=== PATIENT | male | born 1970 | race Caucasian/White ===

== ENCOUNTER 2016-11-03 21:30 | Emergency (ER) | payer OTHER ==
--- NOTE | ~2016-11-03 | ER ---
PATIENT'S NAME: [facility] AGE: 45 Y [address] ROOM: [place] [address] LOCATION: [facility] ADMIT DATE: 11/03/2016 ER/Outpatient Report DISCHARGE DATE: 11/03/2016 FAMILY PHYSICIAN: Ji Castle MD ATTENDING PHYSICIAN: Awilda Zaragoza Time of Arrival: 2130 hours. Time of Evaluation: 2200 hours. IDENTIFICATION: A 45-year-old male. CHIEF COMPLAINT: Back and rib pain. HISTORY OF PRESENT ILLNESS: The patient is a 45-year-old male, who at approximately 5:00 p.m. was backup his horse and landed on his back on the left side. He states that knocked the wind out of him. He did not hit his head. No loss of consciousness. He is complaining severe pain on the left posterior ribs. No shortness of breath. No nausea or vomiting. No lightheadedness or dizziness. No neck pain. PAST MEDICAL HISTORY: ALLERGIES: NO KNOWN DRUG ALLERGIES. CURRENT MEDICATIONS: Advil. MEDICAL PROBLEMS: Denies. No prior surgeries or hospitalizations. SOCIAL HISTORY: The patient lives in [place]. He is . Tobacco use, denies. Alcohol use, occasional. Drug use, denies. FAMILY HISTORY: No pertinent family history identified. REVIEW OF SYSTEMS: All systems reviewed and negative other than what is noted in the HPI. PHYSICAL EXAMINATION: VITAL SIGNS: Weight 88.3 kg. Blood pressure 139/87, pulse 98, respirations PATIENT'S NAME: [facility] AGE: 45 Y [address] ROOM: [place] [address] LOCATION: [facility] ADMIT DATE: 11/03/2016 ER/Outpatient Report DISCHARGE DATE: 11/03/2016 FAMILY PHYSICIAN: Ji Castle MD ATTENDING PHYSICIAN: Awilda Zaragoza 16, and saturations 99%. GENERAL: A 45-year-old male, in obvious distress, who refuses to sit on the cot or lie down. He is standing as that is his position of comfort. HEENT: Head: Normocephalic, atraumatic. Ears: TMs translucent, both ears. Eyes: Pupils equal and reactive to light and accommodation. Extraocular movements intact. Nose: Mucosa pink. No lesions. Mouth: No lesions. Pharynx benign. NECK: Supple. No lymphadenopathy. No tenderness to palpation of the cervical spine. No midline tenderness to palpation of the thoracic or lumbar spine. He is tender to palpation over the left lumbar paraspinal muscles and over the left posterior ribs. No crepitus. No palpable deformities. HEART: Regular rate and rhythm. ABDOMEN: Soft, nondistended. Tender to palpation in the left upper abdomen when I get close to the ribcage. No rebound or guarding. EXTREMITIES: Full range of motion. No deformities. No tenderness to pelvic rock. NEURO: The patient is alert and oriented x4. Cranial nerves 2 through 12 grossly intact. Motor strength 5/5 throughout. Sensation is intact to light touch. EMERGENCY DEPARTMENT COURSE: Initially, the patient did not want any pain medication. We did start an IV. He had a vasovagal reaction with lightheadedness and dizziness at that time. His blood pressure however remained stable. Sodium 137, potassium 3.7, chloride 107, CO2 of 21, BUN 20, creatinine 1.1, blood sugar 100. Liver enzymes normal. Alcohol level less than 0.010. Hemoglobin 17.3, hematocrit 47.2, platelets 261, white count 13.5 with a normal differential. INR 0.92. The patient was given 50 mcg of fentanyl and [address] chest, abdomen, and pelvis with IV contrast: Acute nondisplaced left transverse process fractures at T8 and T9 and subtle nondisplaced buckle fractures of the left posterior ribs at this level. No other fracture or acute abnormality identified. CT of his thoracic spine: As noted above. No other fractures identified. CT of his head negative. CT of the cervical spine negative. CT of his lumbar spine negative. IMPRESSION AND PLAN: T8 and T9 transverse process fractures on the left with associated buckling of the posterior ribs at those levels. Rib fracture handout. The patient was given Percocet 5/325 mg orally here prior to discharge. He did not want to stay for pain control. Percocet 5/325 mg 1 to 2 p.o. q.4-6 hours p.r.n. pain, dispensed 20 with 0 refills. Zofran 4 mg 1 p.o. q.6 hours p.r.n. nausea, dispensed 4 with 0 refills. Ice as needed. Deep breath. Follow up with Dr. Castle next week. Follow up sooner if any problems or concerns. The patient understands and agrees, and all questions have been answered. PATIENT'S NAME: JACOB HERNADEZ [facility] AGE: 45 Y [address] ROOM: [place] [address] LOCATION: [facility] ADMIT DATE: 11/03/2016 ER/Outpatient Report DISCHARGE DATE: 11/03/2016 FAMILY PHYSICIAN: Ji Castle MD ATTENDING PHYSICIAN: Awilda Zaragoza AWILDA ZARAGOZA MD CAR/modl /[id number] d: 11/04/16 0746 t: 11/05/16 0142, OUTPATIENT REPORT
[2016-11-03 22:24] LABS: BASOPHIL % 0.2 %; EOSINOPHIL % 0.3 %; HEMATOCRIT 47.2 % (37.0-53.0); HEMOGLOBIN 17.3 g/dL (12.0-17.0); IMMATURE GRANULOCYTE # 0.1 K/uL (0.0-0.3); IMMATURE GRANULOCYTE % 0.6 %; LYMPHOCYTE # 2.3 K/uL (0.8-4.0); MCH 32.9 pg (27.0-34.0); MCHC 36.7 gm/dL (32.0-36.5); MCV 89.7 fl (83.0-98.0); MONOCYTE # 0.8 K/uL (0.0-1.0); MONOCYTE % 5.8 %; MPV 9.1 fl (9.4-12.4); NEUTROPHIL # (ANC) 10.3 K/uL (1.4-9.0); NEUTROPHIL % 76.1 %; NRBC % 0 /100WBC (0-0.00); PLATELET COUNT 261 K/uL (150-450); RBC 5.26 M/uL (4.00-6.00); RDW-CV 11.9 % (11.9-14.6); WBC 13.5 K/uL (4.0-11.0)
[2016-11-03 22:32] LABS: INR - (THERAPEUTIC) 0.92 (0.92-1.07); PROTIME 9.6 SECONDS (9.8-11.4); PTT 28 SECONDS (25-32)
[2016-11-03 22:41] LABS: ALBUMIN 4.9 gm/dL (3.5-5.0); ALK PHOS 95 IU/L (33-138); ALT 40 IU/L (12-78); ANION GAP 12.7 (10.0-19.0); AST 28 IU/L (10-40); BLOOD UREA NITROGEN 20 mg/dL (6-24); CALCIUM 9.5 mg/dL (8.5-10.5); CHLORIDE 107 mMol/L (96-110); CO2 21 mMol/L (22-32); CREATININE 1.1 mg/dL (0.6-1.3); ESTIMATED GFR (MDRD EQUATION) > 60; POTASSIUM 3.7 mMol/L (3.7-5.1); SODIUM 137 mMol/L (135-145); TOTAL BILIRUBIN 0.6 mg/dL (0.0-1.5)
== END 2016-11-03 23:57 | disposition disaster alternative care site (69) ==
LOC: GACC 21:30
PROVIDERS: Family Medicine
DX: S22.069A Unspecified fracture of T7-T8 vertebra, initial encounter for closed fracture (principal); S22.079A Unspecified fracture of T9-T10 vertebra, initial encounter for closed fracture; S22.42XA Multiple fractures of ribs, left side, initial encounter for closed fracture; V80.010A Animal-rider injured by fall from or being thrown from horse in noncollision accident, initial encounter; Y93.52 Activity, horseback riding
CPT/HCPCS: G0480; J2405; J3010; J7030; Q9967